=== PATIENT | male | born 2000 | race Caucasian/White ===

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

== ENCOUNTER 2021-09-03 15:51 | Observation (INO) | payer OTHER, SELFPAY ==
[2021-09-03] VITALS (9 sets, daily range): BP systolic 117–155; BP diastolic 66–92; PULSE 62–103; RESP 14–18; TEMP 36.4–37.1; O2SAT 94–99; BMI 31.2; BMI 31.1
--- NOTE | 2021-09-03 | APP_PTH ---
PATIENT: SHERRI SAEED LOC: MS3 U#:[id number] AGE/SX: 21/M ROOM: NJ322 RE09/03/[address]: Dr. Foreign Hinkle MD : 2000 BED: 1 DIS: 09/04/2021 SPEC #: [id number] RECD: 09/05/21 06:41 STATUS: NIRALI REKarley #: [id number] EDUARDO: 09/03/21 00:[address]: Foreign Hinkle DEPT: SURGICAL PATHOLOGY RECD BY: Kishor Monroe ENTERED: 09/05/21 08:52 SP TYPE: APPENDIX OTHR DR: No Primary Care Phys Tissues: Appendix, NOS Procedures: Surgery Specimen Level III HEADER OPERATION: Laparoscopic appendectomy PRE-OP DIAGNOSIS: Acute appendicitis TISSUE SUBMITTED: Appendix MICROSCOPIC DIAGNOSIS Appendix, appendectomy: Acute necrotizing appendicitis. Acute serositis. AM:nicole 09/06/2021 MICROSCOPIC DESCRIPTION Slides are reviewed. GROSS DESCRIPTION Received in fixative is one container labeled with the patient's name and designated appendix. The specimen consists of an appendix measuring 10 cm in length and up to 0.7 cm in diameter. The attached periappendiceal adipose tissue measures up to 3.5 cm in width. No obvious perforation is identified. The serosa is congested. The lumen contains small amount of fecal material. No fecalith is identified. Trademark Attorney sections are submitted in one cassette. / SJ:nicole 09/05/2021 TC:2 [facility]: [id number]
--- NOTE | 2021-09-03 16:37 | CT_ITS ---
STUDY: CT ABDOMEN AND PELVIS WITH CONTRAST REASON FOR EXAM: Male, 21 years old. rlq pain RADIATION DOSAGE (If Supplied By Facility): CTDIvol = ( 15.84 ) mGy, DLP = ( 1125.53 ) mGycm TECHNIQUE: Transaxial images were obtained from the dome of the diaphragm to the symphysis pubis without oral contrast. IV 100mL Isovue-370 was administered. Sagittal and coronal images were reconstructed. Individualized dose optimization techniques were used for this CT. COMPARISON: None. FINDINGS: The visualized lung bases are unremarkable. The visualized portions of the heart are within normal limits. Normal liver. Normal gallbladder and extrahepatic biliary system. Normal spleen. Normal pancreas. Normal bilateral adrenal glands. Normal right kidney. Normal left kidney. Normal visualized stomach. Normal small intestine. Normal colon. There is a tubular, thick-walled appendix (8.5 mm), consistent with acute appendicitis. Normal abdominal aorta. Normal inferior vena cava. Normal retroperitoneum. Normal urinary bladder. Normal abdominal wall. Normal osseous structures. CT/Abdomen/Pelvis W IV Cont ONLY IMPRESSION: Acute appendicitis without periappendiceal abscess or pneumoperitoneum Electronically Signed: Magno Lane MD (Brooks) at 17:13 EDT Reading Location ID and State: [facility] / [place] , Service support ,
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
[2021-09-03 16:50] LABS: Bacteria 0 SEEN /hpf (None Seen); Mucous, Urine 0 SEEN /hpf (<or=2+); Red Blood Cells-Urine 0 SEEN /hpf (0-5); Squamous Epithelial Cells - UA 0 SEEN /hpf (0-5); White Blood Cells 0 SEEN /hpf (0-5)
[2021-09-03 16:54] LABS: Absolute Lymphocyte Count 2.03 X10^3/uL (0.83-4.51); Absolute Neutrophil Count 7.2 X10^3/uL (2.0-7.7); Basophil# 0.03 X10^3/uL; Basophil% 0.3 % (0-1); Eosinophil# 0.25 X10^3/uL; Eosinophils% 2.5 % (0-5); Hematocrit 46.4 % (40-54); Hemoglobin 15.6 g/dL (13.0-16.5); Lymphocyte # 2.03 X10^3/ul (0.83-4.51); Mean Corp Hgb Conc 33.6 g/dL (32-36); Mean Corpuscular Hgb 28.6 pg (27.0-32.0); Monocyte% 5.9 % (0-10); NRBC Flagged by Analyzer 0 % (0-5); Neutrophil # 7.23 X10^3/uL (2.7-7.7); Platelet Count 311 K/mm3 (150-450); RBC Distribution Width CV 11.7 % (11.6-14.6); RBC Distribution Width SD 35.8 fl (35.1-43.9); Red Blood Count 5.46 M/mm3 (4.6-6.2); White Blood Count 10.2 K/mm3 (4.4-11.0)
[2021-09-03 16:59] LABS: Color, Urine Yellow (Yellow); Glucose, Dipstick Normal (Normal); Ketone-Dipstick Negative (Negative); Leukocyte Esterase-Dipstick Negative /ul (Negative); Nitrite-Dipstick Negative (Negative); Occult Blood-Urine Negative /ul (Negative); Protein-Dipstick Negative (Negative); Specific Gravity, Urine 1.025 (1.002-1.030); Urine Bilirubin Dipstick Negative (Negative); Urine Clarity Clear (Clear); Urine Urobilinogen Normal (Normal)
[2021-09-03] MEDS: 0.9% Normal Saline 1,000 ML 1000 ML IV (17:00)
[2021-09-03 17:15] LABS: ALB/GLOB Ratio 1.1 RATIO (0.9-2.4); AST(SGOT) 20 U/L (15-37); Alanine Aminotransfer ALT/SGPT 44 U/L (16-61); Albumin, Serum 4.1 g/dL (3.2-5.0); Alkaline Phosphatase 96 U/L (45-117); Anion Gap 6 (5-15); BUN 20 mg/dL (7-18); BUN/Creat Ratio 20.9 RATIO (10-20); Calcium,Total 9.3 mg/dL (8.5-10.1); Chloride 106 mmol/L (98-107); Creatinine, Serum 0.96 mg/dL (0.70-1.30); EST Glomerular Filtration Rate 103 mL/min (>60); Est Glom Filt Rate - Afr Amer 125 mL/min (>60); Estimated Creatinine Clearance 123.57 ml/min; Globulin 3.8 g/dL (2.2-4.2); Glucose 96 mg/dL (74-106); Potassium 3.7 mmol/L (3.5-5.1); Protein, Total 7.9 g/dL (6.4-8.2); Sodium Level 139 mmol/L (136-145)
[2021-09-03] MEDS: Ceftriaxone 1 GM/50 ML BAG IV (17:55)
--- NOTE | 2021-09-03 18:24 | HP.PCM.SX_ITS ---
HPI - General General Date of Admission: 09/03/21 HPI Narrative SHERRI SAEED, is a 21 M who presents with right lower quad pain. The patient reports this started this morning and woke him from sleep. Patient does not report any nausea or vomiting. He denies any diarrhea. He is not having any fevers or chills. [facility] Medical History no medical history Home Medications prednisone 20 mg tablet (Deltasone) 40 mg PO DAILY ##8 08/13/17 [Rx Last Taken Unknown] Allergy/AdvReac Type Severity Reaction Status Date / Time amoxicillin Allergy Shortness Verified 09/03/21 15:52 of breath ibuprofen Allergy Shortness Verified 09/03/21 15:52 of breath Surgical History H/O oral surgery Social History (Updated 09/03/21 @ 16:[address] Km Andrews DO) current gender identity: male Smoking Status: Never smoker ROS Constitutional Constitutional: Denies anorexia, fatigue or fever(s) Eyes Eyes: Denies change in vision ENT HEENT: Denies facial pain Cardiovascular Cardiovascular: Denies chest pain Respiratory/Chest Respiratory/Chest: Denies cough or dyspnea Gastrointestinal Gastrointestinal: Reports abdominal pain; Denies constipation, diarrhea, nausea or vomiting Genitourinary Genitourinary: Denies change in urinary stream Musculoskeletal Musculoskeletal: Denies abnormal gait Integumentary Integumentary: Denies jaundice or new lesions Psychiatric Psychiatric: Denies anxiety Endocrine Endocrinology: Denies flushing Hematologic/Lymphatic Hematologic/Lymphatic: Denies easy bruising Vital Signs Vital Signs Vital Signs: 09/03/21 15:52 09/03/21 17:42 09/03/21 18:00 Temperature 97.9 F 98.7 F 98.7 F Temperature Source Temporal Temporal Temporal Pulse Rate 103 H 88 66 Respiratory Rate 15 14 14 Blood Pressure 121/87 H 155/76 H Blood Pressure Mean 98 102 Pulse Ox 98 99 98 Oxygen Delivery Method Room Air Room Air Room Air Weight Weight: 217 lb 9.54 oz Body Mass Index (BMI) 31.2 Physical Exam Const alert and oriented x3 Resp normal respiratory effort and normal air movement Cardio regular rate and regular rhythm GI soft to palpation and non-distended Inspection: Negative for abdominal distention Palpation: tender RLQ Extremity normal to inspection Results Lab / Micro Data Result Diagrams: 09/03/21 16:18 09/03/21 16:18 Labs: Laboratory Results - last 24 hr 09/03/21 16:18: WBC 10.2, RBC 5.46, Hgb 15.6, Hct 46.4, MCV 85.0, MCH 28.6, MCHC 33.6, RDW Std Deviation 35.8, RDW Coeff of Kari 11.7, Plt Count 311, MPV 10.0, Immature Gran % (Auto) 0.300, Neut % (Auto) 71.0 H, Lymph % (Auto) 20.0, Coffee % (Auto) 5.9, Eos % (Auto) 2.5, Baso % (Auto) 0.3, Absolute Neuts (auto) 7.2, Absolute Lymphs (auto) 2.03, Nucleated RBC % 0 09/03/21 16:18: Sodium 139, Potassium 3.7, Chloride 106, Carbon Dioxide 27.0, Anion Gap 6, BUN 20 H, Creatinine 0.96, Estim Creat Clear Calc 123.57, Est GFR (MDRD) Af Amer 125, Est GFR (MDRD) Non-Af 103, BUN/Creatinine Ratio 20.9 H, Glucose 96, Calcium 9.3, Total Bilirubin 0.40, AST 20, ALT 44, Alkaline Phosphatase 96, Total Protein 7.9, Albumin 4.1, Globulin 3.8, Albumin/Globulin Ratio 1.1 09/03/21 16:45: Urine Color Yellow, Urine Clarity Clear, Urine pH 6.0, Ur Specific [place] 1.025, Urine Protein Negative, Urine Glucose (UA) Normal, Urine Ketones Negative, Urine Occult Blood Negative, Urine Nitrite Negative, Urine Bilirubin Negative, Urine Urobilinogen Normal, Ur Leukocyte Esterase Negative, Urine RBC 0 SEEN, Urine WBC 0 SEEN, Ur Squamous Epith Cells 0 SEEN, Urine Bacteria 0 SEEN, Urine Mucus 0 SEEN Radiology Impression Abdomen/Pelvis CT 09/03/21 16:37 IMPRESSION: Acute appendicitis without periappendiceal abscess or pneumoperitoneum Electronically Signed: Magno Lane MD (Brooks) at 17:13 EDT Reading Location ID and State: [facility] / [place] , Service support , Assessment & Plan Assessment/Plan (1) Acute appendicitis: PLAN: Patient has acute appendicitis. I discussed this diagnosis with him as well as laparoscopic appendectomy. I discussed the procedure in detail as well as the risks including but not limited to bleeding, infection, injury to surrounding organs. Patient understands the risks and is willing to proceed with laparoscopic appendectomy. He was given antibiotics in the emergency room. Foreign Hinkle MD Pager: [facility] [address] [place] [address] [address] [place] [address] Office:
[2021-09-03] MEDS: metroNIDAZOLE 500 MG/100 ML BAG 100 MG IV (19:08)
[2021-09-03] MEDS: Bupivacaine Mpf 0.5% 30 ML VIAL (19:15)
--- NOTE | 2021-09-03 19:34 | OP.PCM_ITS ---
Report of Operation Date of Procedure: 09/03/21 Pre-Operative Diagnosis: Acute appendicitis Post-Operative Diagnosis: Acute appendicitis Surgery/Procedure Performed:: Laparoscopic appendectomy Specimen's removed: Appendix Description of Procedure: The patient was brought into the operating room and general anesthesia was induced. The left arm was tucked and the abdomen was prepped and draped in usual sterile fashion. A small midline incision was made superior to the umbilicus and deepened to the level of the fascia. The fascia was elevated and incised. The peritoneum was also elevated and incised. A finger sweep was performed and a balloon trocar was placed into the abdomen and inflated. The abdomen was insufflated to 15 mmHg and the camera was inserted and the abdomen was inspected for any injuries upon entering the abdomen. There were none. The patient was placed in Trendelenburg position and a 5 mm ports placed in the left lower quadrant and suprapubic areas under direct visualization. Next using atraumatic bowel graspers the appendix was identified. The appendix was grasped and elevated and Enseal was used to take down the mesoappendix. A stapler was used to come across the base of the appendix. The appendix was then placed in Endo Catch bag and removed through the umbilical incision. The staple line was inspected and found to be hemostatic and intact. The 2 5 mm ports are removed under direct visualization. The balloon trocar was deflated and removed and all the air was removed from the abdomen. The umbilical incision fascia was closed with an 0 Vicryl [id number] suture. The incisions were then irrigated with saline and dried. Local anesthetic was injected into the incision sites. The skin incisions were then closed with interrupted 4-0 Monocryl suture and Steri- Strips. Bandages were applied and the patient was awoken and taken to PACU in stable condition. Patient tolerated the procedure well. Admit VTE Documentation VTE Mechan Device Prophylaxis: SCD's
[2021-09-03] MEDS: 0.9% Normal Saline 1,000 ML 60 ML IV (21:52)
[2021-09-03] MEDS: Acetaminophen 325 MG Tablet 650 MG PO (23:25)
[2021-09-03] MEDS: oxyCODONE 5 MG Tablet PO (23:25)
[2021-09-04 01:04] VITALS: BP 132/74; PULSE 74; RESP 16; TEMP 36.8; O2SAT 98
[2021-09-04 04:36] VITALS: BP 111/66; PULSE 84; RESP 16; TEMP 36.7; O2SAT 98
--- NOTE | 2021-09-04 07:13 | DCINST_ITS ---
Discharge Instructions Procedure Appendectomy Diet Discharge Diet: Light diet - advance as tolerated Activity Discharge Activity: May Not Drive (for 2-3 days or while taking narcotic pain medications.) May shower in (days): 1 Lifting Restrictions: 20 lbs for 2 weeks Dressing / Incision Call your doctor if your incision/area has: Continuous Slow Oozing, Sudden Increased Bleeding, Increased Pain/ Swelling, Increased Redness and Foul Smelling Discharge Call your doctor if you observe: Fever of 101 or Higher Suture Line Care: Avoid Pulling/Pushing and Avoid Pinching/Bending Remove Dressing in: 2 days Cleanse incision/area with: Soap & Water Additional Dressing/Incision Instructions:: Keep dressing clean and dry. Change or remove dressing in 2 days. Leave steri strips for 1 week. May protect with a gauze bandaid. Follow Up Care Please Follow Up With: Foreign Hinkle MD When: Please call to schedule 2 week follow up appointment. [phone] Test Results: Test results from this visit will be discussed in further detail at your follow- up appointment, if applicable. Discharge Plan Admission Admit Date/Time: 09/03/21 19:35 Attending Provider: Foreign Hinkle Primary Care Provider: Care Physician,Brit Primary Discharge Orders/Prescriptions Prescriptions: New acetaminophen [Tylenol] 325 mg Tablet 650 mg PO Q4H PRN PRN (Reason: P/F) Qty: 0 0RF oxycodone 5 mg Tablet 5 - 10 mg PO Q4H PRN PRN (Reason: Pain Score 4-10) 5 Days Qty: 30 0RF Referrals / Follow Up: Care Physician,Brit Primary [Primary Care Provider] - Disposition Disposition (needs filled in before D/C Order can be placed): Home, Self Care
[2021-09-04 07:40] VITALS: BP 112/63; PULSE 75; RESP 16; TEMP 36.8; O2SAT 97
[2021-09-04] MEDS: oxyCODONE 5 MG Tablet PO ×2 (07:42→13:06)
[2021-09-04 11:39] VITALS: BP 116/65; PULSE 70; RESP 16; TEMP 36.7; O2SAT 98
== END 2021-09-04 14:18 | disposition home or self-care (01) ==
LOC: ED 17:29 → SDC 17:46 → ACINP 17:47 → SDC 19:38 → MS3 09-04 07:15
PROVIDERS: Admitting Provider Surgery; Emergency Provider Emergency Medicine; Visit Provider Surgery
PROC: 0DTJ4ZZ Resection of Appendix, Percutaneous Endoscopic Approach (ICD-10-PCS; CPT 44970; principal; 2021-09-03 18:45)
DX: K35.80 Unspecified acute appendicitis (principal)
CPT/HCPCS: 44970; 74177; 80053; 81001; 85025; 88304; 99218; 99282; J7030; Q9967; C1760; G0378; J2405

== ENCOUNTER → 2021-09-15 | Outpatient (CLI) | payer OTHER, SELFPAY ==
--- NOTE | 2021-09-15 15:58 | CT_ITS ---
STUDY: CT ABDOMEN AND PELVIS WITH CONTRAST REASON FOR EXAM: Male, 21 years old. PO and IV contrast RADIATION DOSAGE (If Supplied By Facility): CTDIvol = ( 18.25 ) mGy, DLP = ( 1264.39 ) mGycm TECHNIQUE: Transaxial images were obtained from the dome of the diaphragm to the symphysis pubis with oral contrast. Oral and amp; IV Gastrografin and amp; 100mL Isovue-300 was administered. Sagittal and coronal images were reconstructed. Individualized dose optimization techniques were used for this CT. COMPARISON: 09/03/2021 FINDINGS: The visualized lung bases are unremarkable. The visualized portions of the heart are within normal limits. Normal liver. Normal gallbladder and extrahepatic biliary system. Normal spleen. Normal pancreas. Normal bilateral adrenal glands. Normal right kidney. Normal left kidney. Normal visualized stomach. Normal small intestine. Normal colon. There are surgical clips in the region of the appendix consistent with a prior appendectomy. Normal abdominal aorta. Normal inferior vena cava. Normal retroperitoneum. Normal urinary bladder. Some fluid and fat stranding just superior to umbilicus consistent with recent laparoscopic surgery. Normal osseous structures. CT/Abdomen/Pelvis WITH Contrast IMPRESSION: Normal enhanced CT of the abdomen and pelvis after recent laparoscopic appendectomy. Electronically Signed: Rafiq Rivas MD at 17:40 EDT ,
== END | disposition home or self-care (01) ==
LOC: CT 15:52
PROVIDERS: Visit Provider Surgery
DX: R10.9 Unspecified abdominal pain (principal); Z90.49 Acquired absence of other specified parts of digestive tract
CPT/HCPCS: 74177; Q9967